=== PATIENT | female | born 1970 ===

== ENCOUNTER → 2022-04-01 | Outpatient (CLI) | payer OTHER ==
--- NOTE | 2022-04-01 13:51 | RAD ---
EXAM: BILATERAL DIGITAL SCREENING MAMMOGRAPHY. HISTORY: Routine mammographic screening. TECHNIQUE: Bilateral full field digital images were obtained in CC and MLO projections. Computer-aide d detection was applied. COMPARISON: None available. This is interpreted as a baseline study. COMPOSITION: B. There are scattered areas of fibroglandular density. FINDINGS: A small nodule with associated architectural distortion is noted just superior to the right nipple line on the right. See annotations. Multiple small circumscribed or obscured nodules are noted laterally and inferiorly on the left. BI-RADS CATEGORY 0: Incomplete--Needs Additional Imaging Evaluation. RECOMMENDATION: 1. Spot compression of nodules bilaterally as above. Sonography of necessary. See annotations. Electronically signed by: Chai Medrano MD (04/01/2022 1:48 PM) [id number]
== END ==
LOC: MAMMO 12:51 → EDBD 13:00
PROVIDERS: ATTEND Family Medicine
DX: Z12.31 Encounter for screening mammogram for malignant neoplasm of breast (principal)
CPT/HCPCS: 77067